=== PATIENT | female | born 1955 | race Caucasian/White ===

== ENCOUNTER 2025-04-23 17:04 | Emergency (ER) | payer MEDICARE, BC ==
[~2025-04-23] VITALS: Ht 162.6 cm; Wt 84.5 kg
[2025-04-23] MEDS: TETanus/Pertussis (Acell)/Diphther VAC/PF (Tdap-Adult) 0.5ml syringe IMVAC ONE (19:20)
[2025-04-23] MEDS: LIDOcaine 1% (10mg/ml)w/preservative inj. 20ml MDV SQ STA (19:23)
--- NOTE | 2025-04-23 19:25 | RADIOLOGY REPORT ---
CLINICAL INDICATION: Crush injury Right middle finger TECHNIQUE: 3 radiographic views of the right fingers were obtained. COMPARISON: None FINDINGS/IMPRESSION: There is no evidence of acute fracture or dislocation. 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 Moderate to severe degenerative changes of the distal interphalangeal joint of the 2nd digit. Mild degenerative changes of the remainder of the interphalangeal joints. Diffuse demineralization. 6 mm lytic lesion within the Distal fat of the 3rd digit middle phalanx with 3 mm lytic lesion within the distal part of the 2nd digit proximal phalanx There is no radiopaque foreign body. There appears to be wound over the palmar side of the 3rd digit distal phalanx base.
--- NOTE | 2025-04-23 20:01 | Physician Documentation ---
History of Present Illness ~ Chief Complaint: Finger pain Stated Complaint: FINGER LAC Time Seen by MD: 19:06 OK to notify your PCP?: Yes Primary Medical Doctor: Lucy Source: patient Mode of Arrival: POV Exam Limitations: no limitations HPI This is a 69-year-old female who comes in for a injury to the right long finger. The patient states she is slammed in the door just prior to arrival. She has a bleeding however that has resolved spontaneously. She is complaining of throbbing of the tip of the finger. She is able to move it though it does this is some tenderness. Tdap unknown. Tetanus within 5 years: No Medication Reconciliation Allergies: Coded Allergies: Sulfa (Sulfonamide Antibiotics) (Verified Allergy, Unknown, 04/23/25) Past Medical History Lives with: Spouse Lives In: Home Occupation: employed Physical Exam Vital Signs: Temperature: 97.0, Heart Rate: 69, Respiratory Rate: 14, BP: 126/58, Pulse Oximetry: 97, Weight: 84.500 Pulse Oximetry Reflects: adequate oxygenation General Appearance: alert, WD/WN, no apparent distress Digit To inspection of the right long finger the patient has a subcentimeter linear laceration to the pad of the distal phalanx distal to the D IP joint. No active hemorrhaging. No deformity. No significant surrounding edema and ecchymosis. He is able to flex and extend the finger. Cap refill less than 2 seconds and brisk of the tip of the finger. Procedures Laceration Repair : Length (cm): 0.8 Anesthesia: Lidocaine Prep: betadine Repaired: skin Wound Repaired With: sutures Suture Size/Type: 5-0, prolene Layer Closure?: No Dressing Applied: gauze, non-adherent Splint Applied?: No Sling Applied?: No Tolerated Procedure Well?: yes, no complications Progress Results/Orders Results/Orders Orders - CASEY FLYNN Finger(S) (04/23/25 19:14) Completed Orders - CASEY FLYNN Finger(S) (04/23/25 19:14) Tetanus/Pertuss/Diph Acell/Pf (Boostrix (04/23/25 19:10) Lidocaine 1% W/Preservative (Lidocaine 1 (04/23/25 19:15) Medications Received in ER Medications (Trade) Dose Ordered Sig/Sravan Route PRN Reason Start Time Stop Time Status Last Admin Dose Admin (Boostrix vaccine syringe) 0.5 ml ONCE ONCE IMVAC 04/23/25 19:10 04/23/25 19:11 DC 04/23/25 19:20 0.5 ML (LIDOcaine 1% w/ preservative inj. 20ml vial) 20 mg ONCE STAT SQ 04/23/25 19:15 04/23/25 19:17 DC 04/23/25 19:23 20 MG Vital Signs 04/23/25 17:13 Temp 97.0 Pulse 69 Resp 14 B/P (MAP) 126/58 Pulse Ox 97 EKG/XRAY/CT/US/VASC/MRI Bone/Soft Tissue X-Ray (Ext.) : Interpreted By: self Views: 3 VIEW Additional Comment X-ray right long finger three-view interpreted by me: No fracture. Deformity of the soft tissue. No cutaneous gas. Medical Decision Making Additional information obtaine: N/A Findings The x-rays did not show evidence of fracture. A digital block was performed in the laceration was closed with 5-0 Prolene simple interrupted sutures and covered with a nonadherent sterile gauze dressing. I instructed the patient has fever you clean dry and do not remove with the dressing for two days. Suture removal in 10 days. Return to the ER for any worsening or concerning symptoms . General Diff Dx:Considerations: Include: Abrasion, Contusion, Fracture, Hematoma, Laceration, Malunion, Neurovascular injury, Open fracture, Sprain, Ulcer, Other Shoulder Diff Dx:Consideration: Include: AC separation, Adhesive capsulitis, Arthritis, Bicipital tendonitis, Calcific tendonitis, Cervical disc disease, Contusion, Dislocation, Fracture-humerus, Fracture-scapula, Fracture-clavicle, GB disease, Hematoma, Impingement syndrome, Myocardial infarction, Neurovascular injury, Open fracture-humerus, Open fracture-scapula, Open fracture-clavicle, Rotator cuff injury, SC dislocatoin, Sprain, Subacromial bursitis, Other Elbow Diff Dx:Considerations: Include: Abrasion, Arthritis, Contustion, DJD, Fracture-humerus, Fracture-radial head, Fracture-radius, Fracture-ulna, Gout, Hematoma, Laceration, Neurovascular injury, Olecranon bursitis, Open fracture, Osteomyelitis, Radial head subluxation, Rheumatoid arthritis, Septic, Sprain, Ulcer, Other Wrist Diff Dx:Considerations: Include: Abrasion, Arthritis, DJD, Gout, Rheumatoid, Septic, Carpal tunnel snydrome, Contusion, Dislocation, Fracture- carpal, Fracture-radius, Fracture-ulna, Ganglion, Laceration, Neurovascular injury, Open fracture, Strain, Other Hand Diff Dx:Considerations: Include: Abrasion, Arthritis, Contusion, DJD, Felon, Fracture-carpal, Fracture-metacarpal, Fracture-phalynx, Fracture-radius, Fracture-ulna, Gout, Hematoma, Herpetic negra, Laceration, Neurovascular injury, Open fracture, Paronychia, Rheumatoid arthritis, Septic, Sprain, Subungual hematoma, Tenosynovitis, Volar plate injury, Cellulitis, Malunion, Other Finger Diff Dx:Considerations: Include: Abrasion, Cellulitis, Contusion, Dislocation, Fracture, Hematoma, Laceration, Neurovascular injury, Open fracture, Subungual hematoma, Other Additional Comment Crush injury right middle finger. Laceration right middle finger. Open fracture right middle finger. Departure Disposition: HOME / SELF CARE / HOMELESS Impression: Primary Impression: Laceration of finger of right hand Condition: Stable Discharge Instructions: Sutured Wound Care Additional Instructions: Keep the current dressing clean dry and do not remove for two days. After two days you can gently remove the dressing, wash with the antibacterial soap and water, dry wound covered with a Band-Aid. No Neosporin. No peroxide. No topical alcohol. Suture removal in 10 days. Ibuprofen or Tylenol for pain. Return to the ER for any worsening or concerning symptoms. Referrals: NO PRIMARY CARE PROVIDER (PCP) Signature Scribe Signature: No scribe Attestation: The note accurately reflects work and decisions made by me.Casey AC 04/23/25 20:03 CASEY FLYNN Apr 23, 2025 20:01
[2025-04-23 20:42] VITALS: BP 155/82; PULSE 70; RESP 20; TEMP 98.6; O2SAT 99
== END 2025-04-23 20:43 | disposition home or self-care (01) ==
LOC: ER 17:05
DX: S61.212A Laceration without foreign body of right middle finger without damage to nail, initial encounter (principal); Z88.2 Allergy status to sulfonamides; W23.0XXA Caught, crushed, jammed, or pinched between moving objects, initial encounter; Y93.89 Activity, other specified; Y92.89 Other specified places as the place of occurrence of the external cause; Y99.8 Other external cause status
CPT/HCPCS: 12001; 73140; 90715; 99283; A6402; G0008; J3490; Z7610; 90471; A6449